=== PATIENT | female | born 1980 | race Caucasian/White ===

== ENCOUNTER 2021-05-05 19:17 | Emergency (ER) | payer MEDICAID ==
--- NOTE | 2021-05-05 19:37 | NUR ---
NAME WAS CALLED FOR TRIAGE, NO ANSWER AT THIS TIME IN LOBBY
--- NOTE | 2021-05-05 19:47 | NUR ---
NAME WAS CALLED FOR TRIAGE FOR SECOND TIME, NO ANSWER AT THIS TIME IN LOBBY.
--- NOTE | 2021-05-05 19:57 | NUR ---
NAME WAS CALLED FOR TRIAGE FOR THIRD TIME, NO ANSWER AT THIS TIME IN LOBBY. Addendum: 05/05/21 at 1957 by [facility] MADE [facility] PT [id number].
== END 2021-05-05 19:37 | disposition left against medical advice (07) ==
LOC: MED 19:17
DX: R10.9 Unspecified abdominal pain (principal); Z53.21 Procedure and treatment not carried out due to patient leaving prior to being seen by health care provider

== ENCOUNTER 2021-05-05 21:41 | Emergency (ER) | payer MEDICAID ==
[~2021-05-05] VITALS: Ht 149.9 cm; Wt 129.7 kg
[2021-05-05 22:15] VITALS: BP 227/117
--- NOTE | 2021-05-06 00:33 | NUR ---
SEEN AND EXAMINED BY [facility]
[2021-05-06 01:08] LABS: APPEARANCE,URINE CLEAR (CLEAR); BILIRUBIN,URINE NEGATIVE (NEGATIVE); BLOOD, URINE TRACE-I (NEGATIVE); COLOR,URINE YELLOW (YELLOW); LEUKOCYTE ESTERASE ,URINE NEGATIVE (NEGATIVE); NITRITE, URINE NEGATIVE (NEGATIVE); PH,URINE 7.5 (5.0-9.0); UGLUCOSE NEGATIVE (NEGATIVE)
[2021-05-06 01:11] LABS: RBC,URINE 0-5 /HPF (0-5); WBC,URINE 0-5 /HPF (0-5)
[2021-05-06 01:14] LABS: BASOPHILS % (AUTO) 0.4 % (0.0-2.0); EOSINOPHILS % (AUTO) 0.3 % (0.0-4.0); HEMATOCRIT 42.9 % (36-48); HEMOGLOBIN 13.8 g/dL (12.0-16.0); LYMPHOCYTES # (AUTO) 2.4 K/uL (2.5-16.5); LYMPHOCYTES % (AUTO) 25.6 % (20.5-51.1); MEAN CORPUSCULAR HEMOGLOBIN 26 pg (27-31); MEAN CORPUSCULAR HGB CONC 32 g/dL (33-37); MEAN CORPUSCULAR VOLUME 81.2 fL (80-94); MONOCYTES # (AUTO) 0.6 K/uL (0.8-1.0); NEUTROPHILS # (AUTO) 6.4 K/uL (1.8-7.7); NEUTROPHILS % (AUTO) 67.7 % (42.2-75.2); PLATELET COUNT (AUTO) 238 K/uL (140-450); RED BLOOD CELL COUNT(AUTO) 5.28 MIL/uL (4.20-5.40); RED CELL DISTRIBUTION WIDTH 15.1 % (11.6-13.7); WHITE BLOOD COUNT (AUTO) 9.5 K/uL (4.8-10.8)
[2021-05-06 01:29] LABS: ALBUMIN 3.9 g/dL (3.4-5.0); ANION GAP 13.8 (8-16); CARBON DIOXIDE 27.8 mmol/L (21-32); CREATININE 0.8 mg/dL (0.6-1.3); POTASSIUM 3.6 mmol/L (3.5-5.1); TOTAL BILIRUBIN 0.4 mg/dL (0.0-1.0)
--- NOTE | 2021-05-06 04:00 | NUR ---
ER MD DR STRATTON TO [place] IN ER CHAIR B
--- NOTE | 2021-05-06 04:05 | NUR ---
RESULTS BACK AND NOTED BY [facility]
[2021-05-06 04:25] VITALS: BP 208/115
--- NOTE | 2021-05-06 04:25 | NUR ---
Patient discharged with v/s stable. Written and verbal after care instructions given and explained. Patient verbalized understanding. Ambulatory with steady gait. All questions addressed prior to discharge. Advised to follow up with PMD.
== END 2021-05-06 04:25 | disposition home or self-care (01) ==
LOC: MED 21:41
DX: R16.0 Hepatomegaly, not elsewhere classified (principal); I10 Essential (primary) hypertension
CPT/HCPCS: 36415; 76700; 80053; 81001; 81025; 85025; 87086; 99284; Q0092

== ENCOUNTER 2024-01-04 17:29 | Emergency (ER) | payer MEDICAID, OTHER ==
[~2024-01-04] VITALS: Ht 148.6 cm; Wt 126.7 kg
[2024-01-04 17:33] VITALS: BP 215/119; PULSE 93; RESP 16; TEMP 97.9; O2SAT 97
[2024-01-04] MEDS ORDERED: hydrALAZINE 20 MG/ML VIAL ONE (18:40)
[2024-01-04] MEDS: hydrALAZINE 20 MG/ML VIAL IM ONE (18:49)
[2024-01-04 19:02] LABS: ANION GAP 14.4 (8-16); CALCIUM 8.6 mg/dL (8.5-10.1); CARBON DIOXIDE 27.7 mmol/L (21-32); CREATININE 0.6 mg/dL (0.6-1.3); POTASSIUM 4.1 mmol/L (3.5-5.1)
[2024-01-04 19:47] VITALS: BP 196/103; PULSE 104; RESP 21; TEMP 97.9; O2SAT 98
== END 2024-01-04 19:47 | disposition home or self-care (01) ==
LOC: MED 17:29
DX: I10 Essential (primary) hypertension (principal)
CPT/HCPCS: 36415; 80048; 93005; 96372; 99284; J0360